=== PATIENT | female | born 2005 | race Caucasian/White ===

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

== ENCOUNTER 2025-07-11 18:36 | Emergency (ER) | payer OTHER, SELFPAY ==
[2025-07-11 18:42] VITALS: BP 125/73; PULSE 115; RESP 16; O2SAT 100
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
[2025-07-11] MEDS: Ondansetron O.D.T. 4 MG TABEF, 3 TABS/BTL PO (19:38)
[2025-07-11] MEDS: Acetaminophen 500 MG TAB 1000 MG PO (19:38)
[2025-07-11] MEDS: Ondansetron O.D.T. 4 MG TABEF PO (19:38)
== END 2025-07-11 19:45 | disposition home or self-care (01) ==
PROVIDERS: Emergency Provider Physician Assistant
DX: R51.9 Headache, unspecified (principal); F07.81 Postconcussional syndrome; V49.09XA Driver injured in collision with other motor vehicles in nontraffic accident, initial encounter; Y93.89 Activity, other specified; R41.89 Other symptoms and signs involving cognitive functions and awareness
CPT/HCPCS: 99282 ×2